=== PATIENT | female | born 1960 | race Caucasian/White ===

== ENCOUNTER 2021-11-24 14:41 | Inpatient (IN) ==
[2021-11-25] MEDS: *HR* Rivaroxaban 10 MG TABLET PO SCH (17:56)
[2021-11-25] MEDS: *HR* OxyCODONE Immed Rel 5 MG TABLET PO PRN ×2 (17:56→21:44)
[2021-11-25] MEDS: cephALEXin 500 MG CAPSULE PO SCH (20:35)
[2021-11-26] MEDS: *HR* OxyCODONE Immed Rel 5 MG TABLET PO PRN ×3 (04:32→20:50)
[2021-11-26 06:00] LABS: Basophils # 0.1 K/mcL (0.0-0.2); Eosinophils # 0.4 K/mcL (0.0-0.6); Eosinophils % 3.5 %; Hematocrit 40.3 % (35.3-44.9); Hemoglobin 13.1 g/dL (11.5-15.4); Immature Granulocytes % 0.9 % (0-4); Lymphocytes # 2.2 K/mcL (0.6-4.6); Lymphocytes % 19.5 %; Mean Corpuscular HGB Conc 32.5 g/dL (31.6-35.5); Mean Corpuscular Hemoglobin 29.4 pg (28.0-33.3); Mean Corpuscular Volume 90.6 fL (83.0-100.0); Monocytes # 1.3 K/mcL (0.0-1.3); Monocytes % 11.6 %; Neutrophils # 7.1 K/mcL (1.6-8.9); Platelet Count 274 K/mcL (140-400); Red Blood Count 4.45 M/mcL (3.82-4.97); Red Cell Distribution Width 14.6 % (11.5-14.5); Segmented Neutrophils % 63.5 %; White Blood Count 11.2 K/mcL (4.3-11.1)
[2021-11-26 06:18] LABS: BUN/Creatinine Ratio 19 (6-26); Blood Urea Nitrogen 11 mg/dL (8-23); Calcium 8.4 mg/dL (8.6-10.3); Carbon Dioxide 31 mEq/L (23-29); Chloride 101 mEq/L (98-107); Glucose 107 mg/dL (70-105); Osmolality,Calculated 286 (280-300); Potassium 3.8 mEq/L (3.5-5.1); Sodium 138 mEq/L (136-145); eGFR For African Americans > 60 (> 60); eGFR For Non-African Americans > 60 (> 60)
[2021-11-26] MEDS: Aspirin Enteric Coated 81 MG Tablet PO SCH (09:13)
[2021-11-26] MEDS: Cholecalciferol (D-3) 1,000 UNIT (25MCG) TABLET PO SCH (09:13)
[2021-11-26] MEDS: amLODIPine 5 MG TABLET PO SCH (09:14)
[2021-11-26] MEDS: cephALEXin 500 MG CAPSULE PO SCH ×2 (09:14→20:51)
[2021-11-26] MEDS ORDERED: polyethylene glycoL 3350 17 GM POWD.PACK PO PRN (13:12)
[2021-11-26] MEDS ORDERED: MOM Conc 10 ML UD.LIQ PO PRN (13:12)
[2021-11-26] MEDS: *HR* Rivaroxaban 10 MG TABLET PO SCH (16:11)
[2021-11-26] MEDS: Sennosides/Docusate Sodium TABLET PO SCH (20:50)
[2021-11-27] MEDS: *HR* OxyCODONE Immed Rel 5 MG TABLET PO PRN ×2 (05:32→20:30)
[2021-11-27] MEDS: amLODIPine 5 MG TABLET PO SCH (08:38)
[2021-11-27] MEDS: Cholecalciferol (D-3) 1,000 UNIT (25MCG) TABLET PO SCH (08:38)
[2021-11-27] MEDS: Sennosides/Docusate Sodium TABLET PO SCH ×2 (08:38→20:29)
[2021-11-27] MEDS: cephALEXin 500 MG CAPSULE PO SCH (08:38)
[2021-11-27] MEDS: Aspirin Enteric Coated 81 MG Tablet PO SCH (08:38)
[2021-11-27] MEDS: *HR* Rivaroxaban 10 MG TABLET PO SCH (17:21)
[2021-11-27] MEDS: cephALEXin 250 MG CAPSULE PO SCH (20:30)
[2021-11-28] MEDS: Aspirin Enteric Coated 81 MG Tablet PO SCH (07:51)
[2021-11-28] MEDS: cephALEXin 250 MG CAPSULE PO SCH (07:51)
[2021-11-28] MEDS: *HR* OxyCODONE Immed Rel 5 MG TABLET PO PRN ×3 (07:52→20:18)
[2021-11-28] MEDS: amLODIPine 5 MG TABLET PO SCH (07:52)
[2021-11-28] MEDS: Cholecalciferol (D-3) 1,000 UNIT (25MCG) TABLET PO SCH (07:52)
[2021-11-28] MEDS: Sennosides/Docusate Sodium TABLET PO SCH ×2 (07:52→20:19)
[2021-11-28] MEDS: *HR* Rivaroxaban 10 MG TABLET PO SCH (15:53)
[2021-11-28] MEDS: cephALEXin 500 MG CAPSULE PO SCH (20:19)
[2021-11-29 05:41] LABS: Basophils # 0.1 K/mcL (0.0-0.2); Basophils % 0.6 %; Eosinophils # 0.6 K/mcL (0.0-0.6); Eosinophils % 4.8 %; Hematocrit 40.3 % (35.3-44.9); Hemoglobin 13.1 g/dL (11.5-15.4); Immature Granulocytes % 1.6 % (0-4); Lymphocytes # 2.5 K/mcL (0.6-4.6); Lymphocytes % 20.6 %; Mean Corpuscular HGB Conc 32.5 g/dL (31.6-35.5); Mean Corpuscular Hemoglobin 29.6 pg (28.0-33.3); Mean Platelet Volume 9.4 fL (9.4-12.4); Monocytes # 1.3 K/mcL (0.0-1.3); Monocytes % 10.4 %; Neutrophils # 7.6 K/mcL (1.6-8.9); Platelet Count 326 K/mcL (140-400); Red Blood Count 4.43 M/mcL (3.82-4.97); Red Cell Distribution Width 14.7 % (11.5-14.5); White Blood Count 12.2 K/mcL (4.3-11.1)
[2021-11-29 05:55] LABS: BUN/Creatinine Ratio 28 (6-26); Blood Urea Nitrogen 13 mg/dL (8-23); Calcium 8.6 mg/dL (8.6-10.3); Carbon Dioxide 33 mEq/L (23-29); Chloride 99 mEq/L (98-107); Glucose 102 mg/dL (70-105); Osmolality,Calculated 282 (280-300); Potassium 4.3 mEq/L (3.5-5.1); Sodium 136 mEq/L (136-145); eGFR For African Americans > 60 (> 60); eGFR For Non-African Americans > 60 (> 60)
[2021-11-29] MEDS: Cholecalciferol (D-3) 1,000 UNIT (25MCG) TABLET PO SCH (08:09)
[2021-11-29] MEDS: Sennosides/Docusate Sodium TABLET PO SCH ×2 (08:09→20:33)
[2021-11-29] MEDS: Aspirin Enteric Coated 81 MG Tablet PO SCH (08:09)
[2021-11-29] MEDS: amLODIPine 5 MG TABLET PO SCH (08:09)
[2021-11-29] MEDS: cephALEXin 500 MG CAPSULE PO SCH ×2 (08:09→20:33)
[2021-11-29] MEDS: *HR* OxyCODONE Immed Rel 5 MG TABLET PO PRN ×3 (08:11→20:33)
[2021-11-29] MEDS: *HR* Rivaroxaban 10 MG TABLET PO SCH (16:00)
[2021-11-30] MEDS: Cholecalciferol (D-3) 1,000 UNIT (25MCG) TABLET PO SCH (08:30)
[2021-11-30] MEDS: amLODIPine 5 MG TABLET PO SCH (08:30)
[2021-11-30] MEDS: Aspirin Enteric Coated 81 MG Tablet PO SCH (08:30)
[2021-11-30] MEDS: Sennosides/Docusate Sodium TABLET PO SCH ×2 (08:31→21:07)
[2021-11-30] MEDS: cephALEXin 500 MG CAPSULE PO SCH ×2 (08:31→21:07)
[2021-11-30] MEDS: *HR* OxyCODONE Immed Rel 5 MG TABLET PO PRN ×2 (08:38→21:07)
[2021-11-30] MEDS: *HR* Rivaroxaban 10 MG TABLET PO SCH (16:12)
[2021-12-01] MEDS: *HR* OxyCODONE Immed Rel 5 MG TABLET PO PRN ×4 (01:29→22:50)
[2021-12-01] MEDS: Cholecalciferol (D-3) 1,000 UNIT (25MCG) TABLET PO SCH (08:40)
[2021-12-01] MEDS: cephALEXin 500 MG CAPSULE PO SCH ×2 (08:40→22:40)
[2021-12-01] MEDS: Sennosides/Docusate Sodium TABLET PO SCH ×2 (08:41→22:40)
[2021-12-01] MEDS: amLODIPine 5 MG TABLET PO SCH (08:41)
[2021-12-01] MEDS: Aspirin Enteric Coated 81 MG Tablet PO SCH (08:41)
[2021-12-01 11:57] LABS: Bilirubin,Urine Small (Negative); Blood,Urine Negative (Negative); Clarity,Urine Slightly Cloudy (Clear); Color,Urine Yellow (Yellow); Glucose,Urine (UA) Normal (Normal); Ketones,Urine Negative (Negative); Leukocyte Esterase,Urine Trace (Negative); Nitrite,Urine Negative (Negative); PH,Urine 5.5 pH Units (5.0-8.0); Protein,Urine Negative (Neg-Trace); Specific Gravity,Urine 1.025 (1.010-1.025); Urobilinogen,Urine Normal (Normal)
[2021-12-01 12:10] LABS: RBC,Urine 0-3 per hpf (0-3); Squamous Epithelial Cell,Urine Moderate per hpf (None-Few)
[2021-12-01 12:12] LABS: Bacteria,Urine Few per hpf (None-Few)
[2021-12-01] MEDS: *HR* Rivaroxaban 10 MG TABLET PO SCH (16:40)
[2021-12-02] MEDS: cephALEXin 500 MG CAPSULE PO SCH ×2 (08:19→19:37)
[2021-12-02] MEDS: Cholecalciferol (D-3) 1,000 UNIT (25MCG) TABLET PO SCH (08:19)
[2021-12-02] MEDS: amLODIPine 5 MG TABLET PO SCH (08:19)
[2021-12-02] MEDS: Sennosides/Docusate Sodium TABLET PO SCH ×2 (08:19→19:38)
[2021-12-02] MEDS: Aspirin Enteric Coated 81 MG Tablet PO SCH (08:19)
[2021-12-02] MEDS: *HR* OxyCODONE Immed Rel 5 MG TABLET PO PRN ×2 (08:19→13:30)
[2021-12-02] MEDS: *HR* Rivaroxaban 10 MG TABLET PO SCH (16:46)
[2021-12-03] MEDS: *HR* OxyCODONE Immed Rel 5 MG TABLET PO PRN ×3 (00:03→20:13)
[2021-12-03] MEDS: amLODIPine 5 MG TABLET PO SCH (08:36)
[2021-12-03] MEDS: cephALEXin 500 MG CAPSULE PO SCH ×2 (08:36→20:14)
[2021-12-03] MEDS: Aspirin Enteric Coated 81 MG Tablet PO SCH (08:37)
[2021-12-03] MEDS: Cholecalciferol (D-3) 1,000 UNIT (25MCG) TABLET PO SCH (08:37)
[2021-12-03] MEDS: Sennosides/Docusate Sodium TABLET PO SCH ×2 (08:37→20:14)
[2021-12-03] MEDS: *HR* Rivaroxaban 10 MG TABLET PO SCH (16:15)
[2021-12-04] MEDS: cephALEXin 500 MG CAPSULE PO SCH ×2 (08:35→21:17)
[2021-12-04] MEDS: Aspirin Enteric Coated 81 MG Tablet PO SCH (08:35)
[2021-12-04] MEDS: amLODIPine 5 MG TABLET PO SCH (08:35)
[2021-12-04] MEDS: Cholecalciferol (D-3) 1,000 UNIT (25MCG) TABLET PO SCH (08:35)
[2021-12-04] MEDS: *HR* OxyCODONE Immed Rel 5 MG TABLET PO PRN ×3 (08:35→21:18)
[2021-12-04] MEDS: Sennosides/Docusate Sodium TABLET PO SCH ×2 (08:35→21:17)
[2021-12-04] MEDS: *HR* Rivaroxaban 10 MG TABLET PO SCH (14:39)
[2021-12-05 05:17] LABS: Basophils # 0.1 K/mcL (0.0-0.2); Basophils % 0.7 %; Eosinophils # 0.6 K/mcL (0.0-0.6); Eosinophils % 5.5 %; Hematocrit 36.9 % (35.3-44.9); Hemoglobin 11.8 g/dL (11.5-15.4); Lymphocytes # 2.3 K/mcL (0.6-4.6); Lymphocytes % 22.3 %; Mean Corpuscular Hemoglobin 29.6 pg (28.0-33.3); Mean Corpuscular Volume 92.7 fL (83.0-100.0); Mean Platelet Volume 9.5 fL (9.4-12.4); Monocytes # 1.1 K/mcL (0.0-1.3); Monocytes % 10.6 %; Neutrophils # 6.1 K/mcL (1.6-8.9); Platelet Count 331 K/mcL (140-400); Red Blood Count 3.98 M/mcL (3.82-4.97); Red Cell Distribution Width 14.4 % (11.5-14.5); Segmented Neutrophils % 59.9 %; White Blood Count 10.2 K/mcL (4.3-11.1)
[2021-12-05 05:24] LABS: BUN/Creatinine Ratio 30 (6-26); Blood Urea Nitrogen 17 mg/dL (8-23); Calcium 8.7 mg/dL (8.6-10.3); Carbon Dioxide 35 mEq/L (23-29); Chloride 101 mEq/L (98-107); Glucose 93 mg/dL (70-105); Osmolality,Calculated 291 (280-300); Potassium 4.7 mEq/L (3.5-5.1); Sodium 140 mEq/L (136-145); eGFR For African Americans > 60 (> 60); eGFR For Non-African Americans > 60 (> 60)
[2021-12-05] MEDS: cephALEXin 500 MG CAPSULE PO SCH ×2 (09:25→19:57)
[2021-12-05] MEDS: amLODIPine 5 MG TABLET PO SCH (09:25)
[2021-12-05] MEDS: Sennosides/Docusate Sodium TABLET PO SCH ×2 (09:25→19:57)
[2021-12-05] MEDS: Cholecalciferol (D-3) 1,000 UNIT (25MCG) TABLET PO SCH (09:25)
[2021-12-05] MEDS: Aspirin Enteric Coated 81 MG Tablet PO SCH (09:25)
[2021-12-05] MEDS: *HR* OxyCODONE Immed Rel 5 MG TABLET PO PRN ×3 (09:26→19:57)
[2021-12-05] MEDS: *HR* Rivaroxaban 10 MG TABLET PO SCH (16:52)
[2021-12-06 07:53] VITALS: BP 118/69; PULSE 74; RESP 16; TEMP 98.1; O2SAT 99
[2021-12-06] MEDS: amLODIPine 5 MG TABLET PO SCH (08:27)
[2021-12-06] MEDS: Aspirin Enteric Coated 81 MG Tablet PO SCH (08:27)
[2021-12-06] MEDS: cephALEXin 500 MG CAPSULE PO SCH (08:28)
[2021-12-06] MEDS: *HR* OxyCODONE Immed Rel 5 MG TABLET PO PRN (08:28)
[2021-12-06] MEDS: Sennosides/Docusate Sodium TABLET PO SCH (08:28)
[2021-12-06] MEDS: Cholecalciferol (D-3) 1,000 UNIT (25MCG) TABLET PO SCH (08:28)
== END 2021-12-06 17:00 | disposition home health service (06) | DRG 948 ==
LOC: INPGRE 11-25 15:52
PROVIDERS: ADMIT Family Medicine; ATTEND Family Medicine